=== PATIENT | female | born 1985 | race Asian ===

== ENCOUNTER → 2018-03-01 | Outpatient (CLI) | payer OTHER | LOC: FIMAGING 10:29 | PROVIDERS: ATTEND Obstetrics & Gynecology | DX: O24.419 Gestational diabetes mellitus in pregnancy, unspecified control (principal); O09.512 Supervision of elderly primigravida, second trimester; O34.12 Maternal care for benign tumor of corpus uteri, second trimester; O99.212 Obesity complicating pregnancy, second trimester; E66.9 Obesity, unspecified; Z68.35 Body mass index [BMI] 35.0-35.9, adult; Z3A.18 18 weeks gestation of pregnancy ==

== ENCOUNTER → 2018-03-31 | Outpatient (CLI) | payer OTHER | LOC: FIMAGING 15:06 | PROVIDERS: ATTEND Obstetrics & Gynecology | DX: O09.512 Supervision of elderly primigravida, second trimester (principal); Z3A.23 23 weeks gestation of pregnancy ==

== ENCOUNTER 2018-06-24 16:07 | Observation (INO) | payer OTHER ==
[2018-06-24 17:27] LABS: PLATELET COUNT 246 10^3/uL (150-400)
--- NOTE | 2018-06-24 20:18 | PDGENHP ---
History and Physical History and Physical: 33 G1 at 34w3d by LMP c/w 10wk US, sent over from the office for a preeclampsia evaluation. BP in office 140/80 and trace proteinuria. Was seen in Endocrine office yesterday and BP also 140/80 about - per pt. Has wrist BP cuff, has had some intermittent BPs 140s/90s. 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 No VB, no LOF. Preg c/b: +GDMA2 - was started on insulin at 24 weeks - poorly controlled. All BS last week when traveling to [place] last week > 200. +LGA - EFW today 98%ile, 7#12oz, S>D at 37w5d. US done today in office at [facility]. 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 Of [place] / [place] descent O: 37.0 88 BPs q 15 min over 2.5 hours range 64-82 / 114-133 NST 140 reactive, Cat 1 toco - no contractions gen- pleasant, NAD abd - gravid, soft, NT ext - trace edema (compression stockings in place) labs: P/C: 1.44 WBC 8.44 10^3/uL (3.80-9.50) 06/24/18 16:24 RBC 3.72 10^6/uL (4.18-5.33) L 06/24/18 16:24 Hgb 11.8 g/dL (12.6-16.3) L 06/24/18 16:24 Hct 35.3 % (38.0-47.0) L 06/24/18 16:24 MCV 94.9 fL (81.5-99.8) 06/24/18 16:24 MCH 31.7 pg (27.9-34.1) 06/24/18 16:24 MCHC 33.4 g/dL (32.4-36.7) 06/24/18 16:24 RDW 14.3 % (11.5-15.2) 06/24/18 16:24 Plt Count 246 10^3/uL (150-400) 06/24/18 16:24 MPV 10.5 fL (8.7-11.7) 06/24/18 16:24 Neut % (Auto) 73.7 % (39.3-74.2) 06/24/18 16:24 Lymph % (Auto) 17.2 % (15.0-45.0) 06/24/18 16:24 Bryan % (Auto) 7.3 % (4.5-13.0) 06/24/18 16:24 Eos % (Auto) 1.1 % (0.6-7.6) 06/24/18 16:24 Baso % (Auto) 0.2 % (0.3-1.7) L 06/24/18 16:24 Nucleat RBC Rel Count 0.0 % (0.0-0.2) 06/24/18 16:24 Absolute Neuts (auto) 6.22 10^3/uL (1.70-6.50) 06/24/18 16:24 Absolute Lymphs (auto) 1.45 10^3/uL (1.00-3.00) 06/24/18 16:24 Absolute Monos (auto) 0.62 10^3/uL (0.30-0.80) 06/24/18 16:24 Absolute Eos (auto) 0.09 10^3/uL (0.03-0.40) 06/24/18 16:24 Absolute Basos (auto) 0.02 10^3/uL (0.02-0.10) 06/24/18 16:24 Absolute Nucleated RBC 0.00 10^3/uL (0-0.01) 06/24/18 16:24 Immature Gran % 0.5 % (0.0-1.1) 06/24/18 16:24 Immature Gran # 0.04 10^3/uL (0.00-0.10) 06/24/18 16:24 BUN 14 mg/dL (7-23) 06/24/18 16:24 Creatinine 0.7 mg/dL (0.6-1.0) 06/24/18 16:24 Estimated GFR > 60 06/24/18 16:24 Uric Acid 6.7 mg/dL (2.5-6.8) 06/24/18 16:24 Total Bilirubin 0.2 mg/dL (0.1-1.4) 06/24/18 16:24 Conjugated Bilirubin 0.2 mg/dL (0.0-0.5) 06/24/18 16:24 Unconjugated Bilirubin 0.0 mg/dL (0.0-1.1) 06/24/18 16:24 AST 16 IU/L (14-46) 06/24/18 16:24 ALT 33 IU/L (9-52) 06/24/18 16:24 Lactate Dehydrogenase 396 IU/L (313-618) 06/24/18 16:24 Ur Random Creatinine 12.5 mg/dL 06/24/18 16:24 U Random Total Protein 18 mg/dL (0-11) H 06/24/18 16:24 A/P: 33 G1 at 34w3d with poorly controlled GDMA2, proteinuria, and concern for developing preeclampsia, with suspected LGA baby. Does not meet BP criteria for preeclampsia today. Will DC home with strict preeclampsia precautions, and is to follow up on Wednesday morning (in 2 days) for a repeat preeclampsia evaluation (labs, NST, BPs) , unless any symptoms sooner. Discussed considering betamethasone, with concern for developing preeclampsia, but that will interfere with blood sugar control too. If diagnosis of preeclampsia, would administer betamethasone and monitor blood sugars closely. Long discussion about the importance of controlling blood sugars, about concern of big baby and trauma and how uncontrolled blood sugars can contribute to this. >25 min spent with patient face to face, with > 50% in counseling and coordination of care. Patricia Gagnon MD, FACOG
== END 2018-06-24 19:20 | disposition home or self-care (01) ==
LOC: FLD 16:07
PROVIDERS: ADMIT Hospitalist; ATTEND Hospitalist
DX: Z03.79 Encounter for other suspected maternal and fetal conditions ruled out (principal); O24.414 Gestational diabetes mellitus in pregnancy, insulin controlled; O34.13 Maternal care for benign tumor of corpus uteri, third trimester; D25.9 Leiomyoma of uterus, unspecified; Z3A.34 34 weeks gestation of pregnancy
CPT/HCPCS: 59025; G0378

== ENCOUNTER 2018-06-26 09:15 | Observation (INO) | payer OTHER ==
[2018-06-26 10:28] LABS: PLATELET COUNT 220 10^3/uL (150-400)
--- NOTE | 2018-06-27 00:01 | SOAPPROG ---
SOAP Progress Note Assessment/Plan: Assessment:33 yo G1 at 34w5d by LMP c/W 10 wk US with no current evidence of preeclampsia (normotensive), though does have persistent proteinuria (P/c = 0.23 , much improved from 1.4 two days ago. GDMA2 - better control past 2 days since at home. Plan:DC home with preeclamptic precautions. To FU in office in 2 d with NST and physician visit. To have NST and fluid check on Wednesday (6d). Instructed to schedule this regmen continuously every week until delivery. Encourage tight blood sugar control - discussed diet and carb mgmt. > 20 min spent face to face with > 50% in counseling. Patricia Gagnon MD, FACOG (delayed entry - pt seen 1140 on 06/26/18) 06/27/18 00:02 Subjective: Pt feeling well today. Much better since being home and eating more cleanly the past 2 days. No SETHI, no vis change, no epigastric pain. No VB, no LOF. Objective: Laboratory Results 06/26/18 10:17 06/26/18 10:17 NST 140 reactive toco - rare contraction gen - pleasant, NAD CV - RRR chest - CTAB abd - soft, gravid, NT ext - less edema than 2 d ago, 1+ DTRs, no clonus, no calf tenderness - Time Spent With Patient Time Spent With Patient: greater than 20 min - Pending Discharge Pending Discharge Within 24 Hours: Yes Pending Discharge Within 48 Hours: Yes Pending Discharge Date: 06/26/18 Pending Discharge Time: 11:45 Physical Exam - Physical Exam General Appearance: WD/WN, alert, no apparent distress EENT: PERRL/EOMI, normal ENT inspection Neck: non-tender Respiratory: chest non-tender, lungs clear, normal breath sounds Cardiac/Chest: normal peripheral pulses, regular rate, rhythm Abdomen: other (gravid, NT) Pelvic Exam: deferred Rectal: deferred Skin: normal color, warm/dry Extremities: normal inspection, swelling (1+ - less than 2 d ago) Neuro/Psych: alert, normal mood/affect, oriented x 3 ICD10 Worksheet Patient Problems: Problems Problem Status Onset Proteinuria affecting in third trimester Acute - ICD10 Problem Qualifiers (1) Proteinuria affecting in third trimester
== END 2018-06-26 12:17 | disposition home or self-care (01) ==
LOC: FOBOP 09:15 → EDSTATUS 09:15 → FLD 09:38
PROVIDERS: ADMIT Hospitalist; ATTEND Hospitalist
DX: Z03.79 Encounter for other suspected maternal and fetal conditions ruled out (principal); O24.414 Gestational diabetes mellitus in pregnancy, insulin controlled; O34.13 Maternal care for benign tumor of corpus uteri, third trimester; D25.9 Leiomyoma of uterus, unspecified; Z3A.34 34 weeks gestation of pregnancy
CPT/HCPCS: 59025; G0378

== ENCOUNTER 2018-07-15 16:23 | Observation (INO) | payer OTHER ==
--- NOTE | 2018-07-15 19:57 | OBPROG ---
Labor Progress Note Assessment/Plan: Assessment: 33 y/o @ 37 3/7 weeks who was sent over from the office for NST since there was not a good tracing in the office secondary to BMI Plan: NST only - Reactive, Cat I tracing with baseline 140s, pos accels, no decels, and mod variability 07/15/18 19:45 - Contraction Pattern Assessment Current Contraction Pattern: Other (Specify) (none) - FHR Assessment Ye FHR (bpm): 140 FHR Pattern Variability: Moderate FHR Category: 1 Oxytocin Orders Assessment - Pre-Induction/Augmentation Assessment Gestational Age: 37 week(s) and 3 day(s) ICD10 Worksheet Patient Problems: Problems Problem Status Onset NST (non-stress test) reactive on surveillance Acute
== END 2018-07-15 18:25 | disposition home or self-care (01) ==
LOC: FLD 16:23
PROVIDERS: ADMIT Obstetrics & Gynecology; ATTEND Obstetrics & Gynecology
DX: Z03.79 Encounter for other suspected maternal and fetal conditions ruled out (principal); O09.513 Supervision of elderly primigravida, third trimester; Z3A.37 37 weeks gestation of pregnancy
CPT/HCPCS: 59025; G0378

== ENCOUNTER 2018-07-19 16:52 | Inpatient (IN) | payer OTHER ==
[2018-07-19 17:50] LABS: PLATELET COUNT 215 10^3/uL (150-400)
--- NOTE | 2018-07-19 21:43 | GHP ---
[f rep st] PREOP HISTORY AND PHYSICAL DATE OF ADMISSION: 07/19/2018 HISTORY UPON PRESENTATION: The patient is a 33-year-old, G1, P0, at 38 weeks' gestation with an kamron mated due date of 08/02, who presents from an office visit where the patient was found to have hypert ension of 140/86 after the patient had been on NST monitoring for surveillance. The patient wa s advised to present to Labor and Delivery for preeclampsia evaluation. The patient has now had yair ral visits at [facility] with documented blood pressures with systolic of 140. This now qu alifies the patient for a diagnosis of preeclampsia, and the patient has had elevated protein on P:C ratios x2 in the past. The patient is admitted to the hospital for evaluation and discussion about i nduction. The patient is advised that she does meet the criteria for preeclampsia. However, does eldridge ve an atypical presentation with labile blood pressures and lab evaluations that have been very reass uring. The patient has had elevation of her uric acid on previous lab evaluations, but otherwise nor mal CBC and liver function tests, and the creatinine has been good at 0.7. The patient's first evide nce of hypertension was on June 24, and previous to that time throughout the the patient has had very normal low blood pressures. The patient denies any history of hypertension previous to . The patient is advised now that she is 38 weeks' gestation, that there is more risk of c omplications, further worsening of the preeclampsia, and she is advised to proceed with induction for delivery. Repeat laboratory testing is performed today and uric acid is now at 8 with a P:C ratio t jada of 1.1. CBC continues to be normal, and liver functions are normal with a creatinine now of 0.9 . The patient has had multiple very reassuring blood pressures in the 100s to 120s over 60s to 85. However, after discussion about preeclampsia and my recommendations for induction, the patient began having elevated blood pressures in the 140s over 90s to 105. monitoring shows a category 1 tra cing with good variability and baseline in the 130s with great accelerations. No decelerations noted . CARE: The patient has been with [facility] since 10 weeks' gestation. The patie nt's initial blood pressure at 11 weeks was 126/86. The patient had an elevated 1-hour Glucola in e 1st trimester, which was done due to obesity. The patient failed the 3-hour GTT and was diagnosed with diabetes. The patient has been followed by [facility] and was initiated on insulin i n April. The patient has not had good control of blood sugars and has had to continually increase her insulin levels. Out of the first trimester, the patient's blood pressures have been 100s over 7 0s. The patient has had serial growth ultrasounds with the diabetes, and the last check revealed est imated weight of 98th percentile at 7 pounds 12 ounces on 06/24. Head measurements are greater than the 95th percentile, and the abdominal circumference is also greater than the 98th percentile. Also on ultrasounds the patient has been noted to have 2 uterine fibroids measuring 5 to 6 cm. One i s anterior midposition and 1 is posterior. PAST MEDICAL HISTORY: Abnormal Pap smears with positive HPV 10 years ago. The patient has had acid reflux during this . History of migraine headaches a couple times a year. History of depre ssion in her teens with similar symptoms through this . The patient had an [facility]i [facility], but felt she did not need another appointme nt more recently. History of obesity. PAST SURGICAL HISTORY: Negative. ALLERGIES: The patient has no known drug allergies. CURRENT MEDICATIONS: vitamins. Current insulin requirements are NPH at night and a sliding scale of Humalog before each meal. Last noted was 13 units of NPH at night. SOCIAL HISTORY: The patient is . The patient is a nonsmoker. No alcohol or drug use. 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 FAMILY HISTORY: Mom with hypertension. CURRENT LABORATORY: Reveals hemoglobin 12, hematocrit 36.8, platelets 215,000. BUN 21, creatinine 0 .9, uric acid 8. Liver functions normal. Lactate dehydrogenase 410. Random urine protein 15, rando m urine creatinine 14.1, with P:C ratio of 1.06. PHYSICAL EXAM: GENERAL: Reveals an obese Laotian female in no physical distress. The patient does g et emotionally anxious after discussing the need for induction. VITAL SIGNS: The patient's initial blood pressures are 100s over 70s to 120s over 80s, but after discussion about induction, 141/103, 14 5/105, but after the patient had resolved to go home, her blood pressures decreased to 130s over 81. heart tone monitoring reveals a category 1 tracing with great accelerations in the baseline 13 0s with good [id number] variability and no decelerations. No contractions noted. PELVIC: Exam is declined. EXTREMITIES: The patient has hand edema, but has no peripheral pedal edema. The patient has 1+ reflexes at her knees. ASSESSMENT: Intrauterine at 38 weeks' gestation, preeclampsia without severe features. Ge stational diabetes A2 with poorly controlled blood sugars through , and LGA infant on ultras ound with size discrepancy with elevated AC measurements. Moderate size uterine fibroids. Obesity. History of depression and [facility]. History of migraines. PLAN: The patient is counseled about induction due to the concern for worsening preeclampsia. The p atient states that she really has not prepared for that and was wanting to go to at least 39 to 40 we eks gestation before delivery. The patient also reports that she has quite a few things at work that she really needs to settle down before she takes an extended period of time off. The patient was ad vised that although those things seem important, the patient does have increased medical potential, s evere changes that might happen and endanger she and the baby. The patient feels that the lack of co nsistently elevated blood pressures establishes that she is not as sick as we are worried about and f eels that she can continue for at least several days. The patient is advised to touch base with our office with a plan about when we can set up induction. I explained the process of inductio n to her in the hope that she remains out of the severe category. The patient declines remaining in the hospital for induction and has left against medical advice. The patient signed the AMA form, un derstanding that worsening preeclampsia could lead to seizures, stroke, , kidney failure. The patient is encouraged to continue checking at the office for assessments, but again strong ly encouraging progressing to delivery. A total of 45 minutes was spent with the patient discussing her current medical status and the concer ns about the preeclampsia. Greater than 50% of the visit was discussing preeclampsia and potential w orsening, and the reasons for recommendations for delivery. /[id number]/MODL
--- NOTE | 2018-07-25 19:53 | GDS ---
[f rep st] DISCHARGE SUMMARY DISCHARGE SUMMARY: I am asked to put in the discharge order. This actually purposely was not put in on 07/19 because the patient left against medical advice, and I felt that, if I put in a discharge o rder, that would be ordering her discharge. I did not agree with her discharge on that day. If this is appropriate to have as a discharge order, please put that in, but, if someone can actually give m e feedback on whether that is appropriate when a patient leaves AMA. /[id number]/MODL
== END 2018-07-19 20:05 | disposition left against medical advice (07) | DRG 833 ==
LOC: FLD 16:52
PROVIDERS: ADMIT Obstetrics & Gynecology; ATTEND Obstetrics & Gynecology
DX: O14.03 Mild to moderate pre-eclampsia, third trimester (principal); O24.414 Gestational diabetes mellitus in pregnancy, insulin controlled; O99.213 Obesity complicating pregnancy, third trimester; O36.63X0 Maternal care for excessive fetal growth, third trimester, not applicable or unspecified; O34.13 Maternal care for benign tumor of corpus uteri, third trimester; O99.343 Other mental disorders complicating pregnancy, third trimester; F32.9 Major depressive disorder, single episode, unspecified; E66.9 Obesity, unspecified; Z3A.38 38 weeks gestation of pregnancy
CPT/HCPCS: 82947-QW; G0378

== ENCOUNTER 2018-07-25 06:00 | Inpatient (IN) | payer OTHER ==
[2018-07-25] MEDS ORDERED: LIDOCAINE 1% 300 MG/30 ML SDV ONE (07:17)
[2018-07-25] MEDS ORDERED: OLIVE OIL 118 ML BTL MISC ONE (07:17)
[2018-07-25] MEDS ORDERED: AMMONIA AROMATIC 1 EACH AMP IH ONE (07:18)
[2018-07-25] MEDS ORDERED: TERBUTALINE SULFATE 1 MG/ML VIAL ONE (07:18)
[2018-07-25] MEDS ORDERED: MISOPROSTOL 200 MCG TAB ONE (07:18)
[2018-07-25] MEDS ORDERED: OXYTOCIN 10 UNIT/ML VIAL ONE (07:18)
[2018-07-25] MEDS ORDERED: OXYTOCIN/RINGERS LACTATE 20 UNIT/1,000 ML BAG IV ONE (07:18)
[2018-07-25] MEDS ORDERED: OXYTOCIN/RINGERS LACTATE 500 ML IV SCH (07:23)
[2018-07-25] MEDS ORDERED: LR 500 ML IV PRN (07:23)
[2018-07-25] MEDS ORDERED: LIDOCAINE 1% 300 MG/30 ML SDV SC PRN (07:24)
[2018-07-25] MEDS ORDERED: OLIVE OIL 118 ML BTL MISC PRN (07:24)
[2018-07-25] MEDS ORDERED: OXYTOCIN/RINGERS LACTATE 1,000 ML IV PRN (07:24)
[2018-07-25] MEDS ORDERED: EPSOM SALT 454 GM TP PRN (07:24)
[2018-07-25] MEDS ORDERED: PENICILLIN G POTASSIUM 5,000,000 UNIT in D5W 150 ML IV ONE (07:24)
[2018-07-25] MEDS ORDERED: MISOPROSTOL 200 MCG TAB PR PRN (07:24)
[2018-07-25] MEDS ORDERED: IBUPROFEN 600 MG TAB PO PRN (07:24)
[2018-07-25] MEDS ORDERED: LR 1,000 ML IV PRN (07:24)
[2018-07-25 08:08] LABS: PLATELET COUNT 211 10^3/uL (150-400)
[2018-07-25] MEDS ORDERED: PENICILLIN G POTASSIUM 2,500,000 UNIT in D5W 150 ML IV SCH (11:25)
[2018-07-25] MEDS ORDERED: ceFAZolin 2 GM/DEXTROSE 100 ML IV ONE (11:38)
[2018-07-25] MEDS ORDERED: ACETAMINOPHEN 500 MG TAB ONE (13:29)
[2018-07-25] MEDS ORDERED: FAMOTIDINE 20 MG/NACL/50 ML BAG IV ONE (13:29)
[2018-07-25] MEDS ORDERED: CITRIC ACID/SODIUM CITRATE 30 ML UDCUP ONE (13:29)
[2018-07-25] MEDS ORDERED: METOCLOPRAMIDE 10 MG/2 ML VIAL ONE (13:29)
[2018-07-25] MEDS ORDERED: RANITIDINE 50 MG/2 ML VIAL IVP ONE (13:30)
[2018-07-25] MEDS ORDERED: CITRIC ACID/SODIUM CITRATE 30 ML UDCUP PO ONE (13:30)
[2018-07-25] MEDS ORDERED: ACETAMINOPHEN 500 MG TAB PO ONE (13:30)
[2018-07-25] MEDS ORDERED: METOCLOPRAMIDE 10 MG/2 ML VIAL IVP ONE (13:30)
[2018-07-25] MEDS ORDERED: FAMOTIDINE 20 MG/NACL 50 ML IV ONE (13:30)
[2018-07-25] MEDS ORDERED: TRANEXAMIC ACID 1,000 MG/10 ML VIAL ONE (13:37)
[2018-07-25] MEDS ORDERED: morphINE PF 5 MG/10 ML INJ ONE (13:45)
[2018-07-25] MEDS ORDERED: KETAMINE 500 MG/10 ML VIAL ONE (14:15)
--- NOTE | 2018-07-25 14:22 | GHP ---
[f rep st] PREOP HISTORY AND PHYSICAL DATE OF ADMISSION: 07/25/2018 HISTORY OF PRESENT ILLNESS: The patient is a 33-year-old, G1, P0, at 38 weeks and 6 days with an est imated due date of 08/02/2018, who presented to Labor and Delivery this morning for induction of labo r for preeclampsia without severe features. The patient has been strongly advised to proceed with ce sarean section due to recent ultrasound showing macrosomia and the patient's also complicat ed with gestational diabetes type A2 on p.m. NPH insulin. The patient had declined a scheduled C-sec tion and had presented for induction of labor. The patient wanted to give labor a trial knowing incr eased risk of shoulder dystocia and injury to baby with the delivery as well as increased risk of pos tpartum hemorrhage with macrosomia in addition to her history of fibroids. The patient was advised t here is increased chance of intolerance to labor as the macrosomia might present with the baby not tolerating contractions if it could not fit into the pelvic inlet. The patient at this time is n ow desiring to proceed with section. She had gotten up to 10 milliunits per minute of Pitoc in and having mild contractions every 3 to 5 minutes, but now after further discussions about risk an d discussions with the patient's , she decides to proceed with delivery. The patient has now been n.p.o. x2 hours, and we will proceed with . The patient had a diagnosis of pr eeclampsia on July 19, and at that time refused delivery until now. The patient's blood pressures have been stable and the highest blood pressure was in the 140s over 90 while she was standing, but other foreman has been 110s to 130s over 70s to 80s. The patient's admission labs are all stable and creatini ne 0.8 with normal liver functions. Platelets 211,000. The patient's blood sugars this morning have been 70s to 80s. The baby has had some difficulty in monitoring due to the obesity, but has shown c ategory 1 tracing for prolonged periods with good accelerations and no decelerations. Bag of water i s intact. CARE: The patient has been with [facility] [place] [facility] weeks [facility] 126/86. The patient had an elevated 1-hour Glucola in e first trimester and failed a 3-hour GTT, and therefore has had a diagnosis of diabetes since that t paulie. She has been followed with [facility] and was started on insulin in April. The p jake has had times of very poor blood sugar control, but has been in the normal ranges more recentl y. The patient had a time where she used a sliding scale and had regular insulin throughout the day; however, she states she has not needed that in the last 2 weeks. The patient has had serial ultraso unds due to the diabetes, which has shown greater than the 98th percentile overall, as well as the ab dominal circumference greater than the 98th percentile. [facility] the baby was noted to be an estimated weight of 4545 g with, again, the abdominal circumfer ence greater than the 98th percentile. Fluid level was normal. The patient also has 2 uterine fibro ids with 6 cm fibroid noted in the anterior mid position and a 5 cm posterior uterine fibroid. PAST MEDICAL HISTORY: Abnormal Pap smears with positive HPV. History of acid reflux during the preg tariq. History of migraines a couple of times a year. History of depression in her teens with simil ar symptoms through the earlier part of this . The patient had a [facility], and did not need further appointments during the . The patient also has obesity. PAST SURGICAL HISTORY: Negative. CURRENT OBSTETRIC LABS: Maternal blood type B positive with negative antibody screen. RPR nonreacti ve. Hepatitis B surface antigen negative. HIV negative. Rubella shows low immunity. Urinalysis an d culture negative. Pap smear and HPV negative. Gonorrhea and chlamydia negative. Verifi testing w as normal. MSAFP was negative. Gestational diabetes diagnosis was on January 22. GBS culture was positive. ALLERGIES: The patient has no known drug allergies. CURRENT MEDICATIONS: vitamins. NPH at night of 13 units; however, the patient reported she only used 12 last night. Sliding scale of Humalog a couple of weeks ago. SOCIAL HISTORY: The patient is . She is a nonsmoker and uses no alcohol or drug use. 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 FAMILY HISTORY: The patient's mother has hypertension. CURRENT LAB ON ADMISSION: The patient's white count is 6.9, hemoglobin of 12, hematocrit of 36, plat elets 211,000. Creatinine 0.8, uric acid 6.7. Liver function tests are normal. P to C ratio was el evated at 1.1 last week. Blood sugar has been 73 and 80. PHYSICAL EXAMINATION: GENERAL: Upon admission, the patient is an obese Laotian female in no physica l distress. The patient has been in a good mental frame of mind for the induction and has been open to the discussions of the risks for vaginal . Her has noted complications that his [facility] er told him was with his , and the scenario that sounds like shoulder dystocia with his large bi rth weight. VITAL SIGNS: Up to 140/90 with blood pressures more 120s to 130s over 70s and 80s. The patient has had preeclamptic range of blood pressures on prior admissions. LUNGS: Clear to auscult ation bilaterally. CARDIOVASCULAR: Regular rate and rhythm. heart tone monitoring has been d ifficult due to the obesity, but several episodes of good category 1 tracing with baseline in the 130 s to 140s with good accelerations and no decelerations. No contractions of any strong intensity, but mild ones occurring every 3 to 5 minutes. The patient has now been off Pitocin for 2 hours. PELVIC : Showed 3 cm dilated, about 90% effaced, at -3 station and the head was ballotable. EXTREMITIES: The patient has hand and face edema, but no peripheral pedal edema. She has 1 to 2+ reflexes at her knees. ASSESSMENT: Intrauterine at 38 weeks and 6 days, preeclampsia without severe features, for induction today, gestational diabetes A2 with poorly controlled blood sugars earlier in an d macrosomia with an estimated weight of 4545 g. Due to the macrosomia, the patient is strongl y counseled to reconsider induction of labor , and the patient now wants to proceed with del demi. Moderate-size uterine fibroids. Obesity. History of depression. History of migraines. PLAN: The patient is now counseled and consented to proceed with . We will use TXA at the time of incision to try to help proactively control estimated uterine atony. The patient is receivin g Ancef prior to incision. Patient will be on DVT prophylaxis. /[id number]/MODL
[2018-07-25] MEDS ORDERED: NALOXONE HCL 0.4 MG/ML INJ IVP PRN ×2 (14:37→15:21)
--- NOTE | 2018-07-25 14:37 | PREANESOB ---
Obstetric Pre-Anesthesia Info - General Info : 1 Para: 0 SUNNY: 08/02/18 Gestational Age: 38 week(s) and 6 day(s) Anesthesia Allergies/Adverse Reactions: Allergy/AdvReac Type Severity Reaction Status Date / Time No Known Allergies Allergy Unverified 08/03/14 21:08 Home Medications: Medication Instructions Recorded Ascorbic Acid [Vitamin C 250mg 500 mg PO DAILY 06/26/18 chewable] Docusate Sodium [Colace 100 MG (*)] 100 mg PO BID 06/26/18 Fluticasone Nasal [Flonase Nasal 1 sprays NASAL DAILY 06/26/18 [place] (RX)] Folic Acid [Folic Acid 1 MG (*)] 06/26/18 Insulin Lispro [Humalog Kwikpen PRN 06/26/18 U-100] Insulin NPH Hum/Reg Insulin Hm 12 units SQ DAILY AT 9PM 06/26/18 [Humulin 70/30 Kwikpen] Iron 06/26/18 Vit27&Calcium/Iron/FA 1 each PO DAILY 06/26/18 [ Rx 1 Tablet (RX)] Fiber Gummies 07/19/18 Lansoprazole [Prevacid] 1 tab PO 07/25/18 Visit Medications: Generic Name Dose Route Start Last Admin Trade Name Freq PRN Reason Stop Dose Admin Lactated Ringer's 500 mls @ 500 mls/hr 07/25/18 07:23 Lr IV PRN PRN Maternal Hypotension Oxytocin/Lactated Ringer's 500 mls @ 0 mls/hr 07/25/18 07:23 07/25/18 07:50 Pitocin 30 Units/Lr (Premix) IV 01/21/19 07:22 500 mls CONT KYLIE Administration Protocol Per Protocol Lactated Ringer's 1,000 mls @ 0 mls/hr 07/25/18 07:24 07/25/18 07:50 Lr IV 07/26/18 07:23 1,000 mls PRN PRN Administration SEE PROTOCOL CONDITIONS Protocol Per Protocol Oxytocin/Lactated Ringer's 1,000 mls @ 125 mls/hr 07/25/18 07:24 Pitocin 20 Units/Lr (Premix) IV PRN PRN Post bleeding Penicillin G Potassium 2,500, 155 mls @ 155 mls/hr 07/25/18 11:25 07/25/18 12 :25 000 unit/ Dextrose IV 08/24/18 11:24 155 mls Q4H KYLIE Administration Protocol Ibuprofen 600 mg 07/25/18 07:24 Motrin PO ONCE PRN post , pain Lidocaine HCl 300 mg 07/25/18 07:24 Lidocaine Hcl 1% SC 01/21/19 07:23 ONCE PRN episiotomy Magnesium Sulfate 454 gm 07/25/18 07:24 Epsom Salt TP 01/21/19 07:23 Q1H PRN perineal discomfort Misoprostol 800 - 1,000 mcg 07/25/18 07:24 Cytotec CA ONCE PRN Vaginal Atony/Bleeding Boaz Oil 118 ml 07/25/18 07:24 Sweet Oil MISC 01/21/19 07:23 ONCE PRN perineal massage Discontinued Medications Generic Name Dose Route Start Last Admin Trade Name Freq PRN Reason Stop Dose Admin Acetaminophen Confirm 07/25/18 13:29 Tylenol Administered 07/25/18 13:30 Dose 1,000 mg .ROUTE .STK-MED ONE Acetaminophen 1,000 mg 07/25/18 13:30 Tylenol PO 07/25/18 13:31 ONCE ONE Ammonia (Aromatic Spirit) Confirm 07/25/18 07:18 Ammonia Aromatic Administered 07/25/18 07:19 Dose 1 each IH .STK-MED ONE Citric Acid/Sodium Citrate Confirm 07/25/18 13:29 Bicitra Administered 07/25/18 13:30 Dose 30 ml .ROUTE .STK-MED ONE Citric Acid/Sodium Citrate 30 ml 07/25/18 13:30 Bicitra PO 07/25/18 13:31 ONCE ONE Famotidine/Sodium Chloride Confirm 07/25/18 13:29 Pepcid 20 Mg (Premix) Administered 07/25/18 13:30 Dose 20 mg IV .STK-MED ONE Penicillin G Potassium 5,000, 160 mls @ 160 mls/hr 07/25/18 07:24 07/25/18 07 :49 000 unit/ Dextrose IV 07/25/18 08:23 160 mls ONCE ONE Administration Protocol Cefazolin Sodium/Dextrose 100 mls @ 200 mls/hr 07/25/18 11:38 Ancef IV 07/25/18 12:07 ONCALL ONE Protocol Ketamine HCl Confirm 07/25/18 14:15 Ketamine Administered 07/25/18 14:16 Dose 500 mg .ROUTE .STK-MED ONE Lidocaine HCl Confirm 07/25/18 07:17 Lidocaine Hcl 1% Administered 07/25/18 07:18 Dose 300 mg .ROUTE .STK-MED ONE Metoclopramide HCl Confirm 07/25/18 13:29 Reglan Injection Administered 07/25/18 13:30 Dose 10 mg .ROUTE .STK-MED ONE Metoclopramide HCl 10 mg 07/25/18 13:30 Reglan Injection IVP 07/25/18 13:31 ONCE ONE Misoprostol Confirm 07/25/18 07:18 Cytotec Administered 07/25/18 07:19 Dose 1,000 mcg .ROUTE .STK-MED ONE Morphine Sulfate Confirm 07/25/18 13:45 Morphine Pf 5 Mg/10 Ml Administered 07/25/18 13:46 Dose 5 mg .ROUTE .STK-MED ONE Boaz Oil Confirm 07/25/18 07:17 Sweet Oil Administered 07/25/18 07:18 Dose 118 ml MISC .STK-MED ONE Oxytocin Confirm 07/25/18 07:18 Pitocin Administered 07/25/18 07:19 Dose 30 unit .ROUTE .STK-MED ONE Oxytocin/Lactated Ringer's Confirm 07/25/18 07:18 Pitocin 20 Units/Lr (Premix) Administered 07/25/18 07:19 Dose 20 unit IV .STK-MED ONE Ranitidine HCl 50 mg 07/25/18 13:30 Zantac IVP 07/25/18 13:31 ONCALL ONE Terbutaline Sulfate Confirm 07/25/18 07:18 Brethine Administered 07/25/18 07:19 Dose 1 mg .ROUTE .STK-MED ONE Tranexamic Acid Confirm 07/25/18 13:37 Cyklokapron Administered 07/25/18 13:38 Dose 1,000 mg .ROUTE .STK-MED ONE - Anesthesia History Response to Local Anesthetics: Normal Anesthesia & Operative History: No Prior Problems Family Anesthesia History: Negative - Social History Substance Use/Abuse: Denies - Vital Signs Height/Weight (Nursing): Height 162.56 cm Weight 103.4 kg - Focused Exam Neck exam: decreased ROM Mallampati Score: Class 2 Mouth exam: normal dental/mouth exam Pulmonary: no respiratory distress Cardiovascular: regular rate and rhythym Labs: 07/25/18 07:45 07/25/18 10:30 Patient ABO/Rh B POSITIVE 07/25/18 07:45 Uric Acid 6.7 mg/dL (2.5-6.8) 07/25/18 10:30 Total Bilirubin 0.2 mg/dL (0.1-1.4) 07/25/18 10:30 Conjugated Bilirubin 0.1 mg/dL (0.0-0.5) 07/25/18 10:30 Unconjugated Bilirubin 0.1 mg/dL (0.0-1.1) 07/25/18 10:30 AST 26 IU/L (14-46) 07/25/18 10:30 ALT 22 IU/L (9-52) 07/25/18 10:30 Lactate Dehydrogenase 448 IU/L (313-618) 07/25/18 10:30 - Plan Anesthetic Plan: spinal Consent Signed and on Chart: Yes Patient/Guardian Understands and Agrees to Plan: Yes Urgent/Emergent Case: Frederic bell completed preop but documented later for safe timely pt care
[2018-07-25] MEDS ORDERED: fentaNYL 100 MCG/2 ML INJ ONE (15:01)
[2018-07-25] MEDS: KETOROLAC 30 MG/1 ML SDV IVP SCH ×2 (15:20→21:27)
[2018-07-25] MEDS ORDERED: PHENYLEPHRINE HCL 100 MCG/ML SYR IVP PRN (15:21)
[2018-07-25] MEDS ORDERED: fentaNYL 100 MCG/2 ML INJ IVP PRN (15:21)
[2018-07-25] MEDS ORDERED: NS 500 ML IV PRN (15:21)
[2018-07-25] MEDS ORDERED: PROMETHAZINE HCL 25 MG/ML INJ IVP PRN (15:21)
[2018-07-25] MEDS ORDERED: oxyCODONE IR 5 MG TAB PO PRN (15:46)
[2018-07-25] MEDS ORDERED: LACTULOSE 20 GM/30 ML UDCUP PO PRN (15:46)
[2018-07-25] MEDS ORDERED: POLYETHYLENE GLYCOL 3350 17 GM PKT PO PRN (15:46)
[2018-07-25] MEDS ORDERED: BISACODYL 10 MG SUPP PR PRN (15:46)
[2018-07-25] MEDS ORDERED: MAGNESIUM HYDROXIDE 30 ML UDCUP PO PRN (15:46)
[2018-07-25] MEDS ORDERED: MEASLES,MUMPS&RUBELLA VACC/PF 0.5 ML VIAL SC ONE (15:52)
--- NOTE | 2018-07-25 15:55 | OBDEL ---
Info Type: Primary Presentation at Delivery: Vertex L&D Analgesia/Anesthesia Type: Spinal (with duramorph) GBS+: Yes (PCN x 2doses) Intrapartum Medications: Generic Name Dose Route Start Last Admin Trade Name Freq PRN Reason Stop Dose Admin Oxytocin/Lactated Ringer's 500 mls @ 0 mls/hr 07/25/18 07:23 07/25/18 07:50 Pitocin 30 Units/Lr (Premix) IV 01/21/19 07:22 500 mls CONT KYLIE Administration Protocol Per Protocol Lactated Ringer's 1,000 mls @ 0 mls/hr 07/25/18 07:24 07/25/18 07:50 Lr IV 07/26/18 07:23 1,000 mls PRN PRN Administration SEE PROTOCOL CONDITIONS Protocol Per Protocol Discontinued Medications Generic Name Dose Route Start Last Admin Trade Name Lakshmi PRN Reason Stop Dose Admin Acetaminophen 1,000 mg 07/25/18 13:30 07/25/18 13:37 Tylenol PO 07/25/18 13:31 1,000 mg ONCE ONE Administration Citric Acid/Sodium Citrate 30 ml 07/25/18 13:30 07/25/18 13:38 Bicitra PO 07/25/18 13:31 30 ml ONCE ONE Administration Penicillin G Potassium 5,000, 160 mls @ 160 mls/hr 07/25/18 07:24 07/25/18 07 :49 000 unit/ Dextrose IV 07/25/18 08:23 160 mls ONCE ONE Administration Protocol Penicillin G Potassium 2,500, 155 mls @ 155 mls/hr 07/25/18 11:25 07/25/18 12 :25 000 unit/ Dextrose IV 08/24/18 11:24 155 mls Q4H KYLIE Administration Protocol Cefazolin Sodium/Dextrose 100 mls @ 200 mls/hr 07/25/18 11:38 07/25/18 13:44 Ancef IV 07/25/18 12:07 100 mls ONCALL ONE Administration Protocol Metoclopramide HCl 10 mg 07/25/18 13:30 07/25/18 13:40 Reglan Injection IVP 07/25/18 13:31 10 mg ONCE ONE Administration - Care Provider Central Office Repairer/[employer]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: Sonia Damico Indications for Delivery: Preeclampsia Mild ( macrosomia - EFW 4545gm), Diabetes Gestational Poorly Controlled Operative Report - Delivery Pre-op Diagnoses: IUP at 38w6d, macrosomia, preeclampsia without severe features, GDM - A2, uterine fibroids Post-op Diagnoses: same, delivered History of Prior Section: No Number of Prior Sections: 0 Nulliparous Prior to Delivery: Yes Indications for Current Section: Other (Specify) ( macrosomia - EFW 4545 gm) Procedure: Unscheduled, Low Transverse Surgeon: Janice Stokes Pool Hand: Bisi Lopez Anesthesiologist: Sukumar Snow Complications: Other (Specify) (persistent bleeding from right hysterotomy - add'n sutures in figure of eight stitches, and surgicele applied for light cont oozing.) Findings: more adherent visceral peritoneum - more vasc plane to dev the bladder flap. clear fluid upon hysterotomy. no nuchal cord. vigorous baby upon delivery. 1 min delayed cord clamping. uterus with 6 cm ant fibroid and smaller post fibroid. persistent bld from right angle of incision under the ant fibroid. add'n stitches placed x4. double layer closure. bladder flap edge req'd cautery. surgicele placed. irrigation done. muscle reapprox with F8 stitch in midline. fascia closed with 2 stitches, each starting from angle but best visualization. brock's closed. good uterine tone - minimal bleed after surg and firm fundus. clear uop IV Fluid (ml): 1,400 EBL: 1200 [place] Data SUNNY: 08[birth year] Gestational Age: 38 week(s) and 6 day(s) Ye Delivery Date: 07/25/18 Delivery Time: 14:28 Sex of Infant: Male ([place]) Weight (gm): 3705 g (8#10oz) Score (1 Min): 8 Score (5 Min): 9 ICD10 Worksheet Patient Problems: Problems Problem Status Onset S/P primary low transverse Acute Macrosomia of fetus affecting management of mother Acute Gestational diabetes mellitus (GDM) Acute Pre-eclampsia during in third trimester, antepartum Acute
[2018-07-25] MEDS: IBUPROFEN 600 MG TAB PO SCH ×2 (16:19→22:32)
--- NOTE | 2018-07-25 18:51 | OBPP ---
Progress Note Assessment/Plan: Assessment: POD 1/2 s/p primary c/s for macrosomia, preeclampsia and GDM A2 doing well. Plan: routine care. will watch for b/p elevation. 07/25/18 18:48 Subjective/ Course: 07/25/18 18:49 Pt doing well. reports no pain while sitting in bed. Has had no nausea - ning ice chips and sips of water. Has worked with the baby trying to latch. baby seems very sleepy. No headache. Disc f/u with Dr Razo for bs evaluation in couple months but not necessary to monitor bs now. Objective: 07/25/18 07:45 07/25/18 10:30 Patient ABO/Rh B POSITIVE 07/25/18 07:45 Uric Acid 6.7 mg/dL (2.5-6.8) 07/25/18 10:30 Total Bilirubin 0.2 mg/dL (0.1-1.4) 07/25/18 10:30 Conjugated Bilirubin 0.1 mg/dL (0.0-0.5) 07/25/18 10:30 Unconjugated Bilirubin 0.1 mg/dL (0.0-1.1) 07/25/18 10:30 AST 26 IU/L (14-46) 07/25/18 10:30 ALT 22 IU/L (9-52) 07/25/18 10:30 Lactate Dehydrogenase 448 IU/L (313-618) 07/25/18 10:30 Temp Pulse Resp BP Pulse Ox 36.6 C 98 17 110/62 96 07/25/18 18:41 07/25/18 18:41 07/25/18 18:41 07/25/18 18:41 07/25/18 18:41 Uterine Position/Fundal Height: At Umbilicus Uterine Tone: Firm Physical Exam - Physical Exam Abdomen: non-tender (approp post op tenderness), soft, dressing (CDI - old stain on left angle) Extremities: non-tender, pedal edema (minimal) Skin: normal color, warm/dry Neuro/Psych: alert, normal mood/affect
[2018-07-25] MEDS: SENNOSIDES/DOCUSATE SODIUM TAB PO SCH (21:27)
[2018-07-25] MEDS: ACETAMINOPHEN 325 MG TAB PO SCH (21:28)
[2018-07-26] MEDS: KETOROLAC 30 MG/1 ML SDV IVP SCH ×2 (04:02→10:04)
[2018-07-26] MEDS: ACETAMINOPHEN 325 MG TAB PO SCH ×5 (04:02→22:19)
[2018-07-26] MEDS: IBUPROFEN 600 MG TAB PO SCH ×4 (04:33→22:18)
[2018-07-26] MEDS ORDERED: ENOXAPARIN 40 MG/0.4 ML SYR SC SCH (09:00)
--- NOTE | 2018-07-26 10:05 | OBPP ---
Progress Note Assessment/Plan: Assessment: 33 G1Pnow 1, POD#1 s/p primary LTCS in setting of preeclampsia with severe features, Gestational /pregestational diabetes, maternal obesity. BPs stable. One random gluc yesterday afternoon was normal - 100. Needs 2 hr GTT in 6-8 weeks. Received one dose of Lovenox today, as has not ambulated yet. Urinary catheter out - will need to be up to ambulate. Patricia Gagnon MD, FACOG 07/26/18 09:55 Subjective/ Course: 07/25/18 18:49 Pt doing well. reports no pain while sitting in bed. Has had no nausea - ning ice chips and sips of water. Has worked with the baby trying to latch. baby seems very sleepy. No headache. Disc f/u with Dr Razo for bs evaluation in couple months but not necessary to monitor bs now. 07/26/18 11:54 Pt doing well. Has been doing well. Has not been out of bed yet. Urinary catheter just removed. Ning reg diet without nausea today. Working on . NO SETHI, no vis changes, no epigastric pain. Mod lochia. Pain well controlled so far. Objective: 07/26/18 04:05 07/25/18 10:30 Patient ABO/Rh B POSITIVE 07/25/18 07:45 Uric Acid 6.7 mg/dL (2.5-6.8) 07/25/18 10:30 Total Bilirubin 0.2 mg/dL (0.1-1.4) 07/25/18 10:30 Conjugated Bilirubin 0.1 mg/dL (0.0-0.5) 07/25/18 10:30 Unconjugated Bilirubin 0.1 mg/dL (0.0-1.1) 07/25/18 10:30 AST 26 IU/L (14-46) 07/25/18 10:30 ALT 22 IU/L (9-52) 07/25/18 10:30 Lactate Dehydrogenase 448 IU/L (313-618) 07/25/18 10:30 Temp Pulse Resp BP Pulse Ox 37.1 C 104 H 18 106/65 94 07/26/18 04:18 07/26/18 04:18 07/26/18 07:15 07/26/18 04:18 07/26/18 07:15 Intake and Output 07/25/18 07/26/18 07/26/18 17:59 05:59 17:59 Intake Total 2670 1700 250 Output Total 450 1900 700 Balance 2220 -200 -450 Weight 103.4 kg Intake: Oral (ml) 700 600 250 IV Intake (ml) 1100 IV Infused (ml) 1970 Famotidine 20 mg/NaCl 50 50 ml @ 200 mls/hr IV ONCE ONE Rx#:[id number] Lr 1,000 ml @ Per 1500 Protocol IV PRN PRN Rx#: [id number] Oxytocin/Ringers Lactate 20 500 ml @ Per Protocol IV CONT KYLIE Rx#:[id number] Penicillin G Potassium 2, 150 500,000 unit In D5w 150 ml @ 155 mls/hr IV Q4H KYLIE Rx#:[id number] Penicillin G Potassium 5, 150 000,000 unit In D5w 150 ml @ 160 mls/hr IV ONCE ONE Rx#:[id number] ceFAZolin 2 GM/DEXTROSE 100 100 ml @ 200 mls/hr IV ONCALL ONE Rx#:[id number] Output: Urine (ml) 450 700 700 Catheter 450 700 700 Estimated Blood Loss (ml) 1200 Other: Output Comment Toilet cath removed no pee yet had 700ml urine out in 6 hours this morning. gen - pleasant, NAD CV - RRR chest - CTAB abd - soft, + BS dressing - C/D/I ext - SCDs in place, no calf tenderness, BLE with trace edema Uterine Position/Fundal Height: Umbilicus -2 Uterine Tone: Firm
[2018-07-26] MEDS: FERRO-SEQUELS 65 MG TAB.ER PO SCH ×2 (14:19→22:18)
[2018-07-26] MEDS: SENNOSIDES/DOCUSATE SODIUM TAB PO SCH ×2 (14:19→22:18)
--- NOTE | 2018-07-26 17:54 | POSTANESTH ---
Post Anesthetic Evaluation Cardiovascular Status: Normal, Stable, Similar to Pre-Op Cond Respiratory Status: Normal, Stable, Similar to Pre-op Cond. Level of Consciousness/Mental Status: Can Participate in Eval, Alert and Oriented Pain Control: Adequate, Prn Tx Ordered Nausea/Vomiting Control: Adequate, Prn Tx Ordered Complications Possibly Related to Anesthesia: None Noted Notes: Pt seen and examined. Back site c/d/i, no e/e/e. Denies SETHI/N/V/pruritis. [place] that her spinal gave excellent pain control for incision, but was surprised by how uncomfortable the pushing required to deliver the baby was. Able to ambulate. Block has resolved completely, no apparent adverse effects from the SAB/ITM.
[2018-07-27] MEDS: ACETAMINOPHEN 325 MG TAB PO SCH ×4 (04:39→22:36)
[2018-07-27] MEDS: IBUPROFEN 600 MG TAB PO SCH ×4 (04:39→22:35)
--- NOTE | 2018-07-27 10:14 | OBPP ---
Progress Note Assessment/Plan: Assessment: 33 y/o POD #2 s/p LTCS secondary to macrosomia Plan: support and bowel protocol today. Encourage ambulation today. Routine POC. 07/27/18 10:14 Subjective/ Course: 07/25/18 18:49 Pt doing well. reports no pain while sitting in bed. Has had no nausea - ning ice chips and sips of water. Has worked with the baby trying to latch. baby seems very sleepy. No headache. Disc f/u with Dr Razo for bs evaluation in couple months but not necessary to monitor bs now. 07/26/18 11:54 Pt doing well. Has been doing well. Has not been out of bed yet. Urinary catheter just removed. Ning reg diet without nausea today. Working on . NO SETHI, no vis changes, no epigastric pain. Mod lochia. Pain well controlled so far. 07/27/18 10:11 Pt is doing well today. Her pain control is better today with Ibuprofen and Tylenol. She is ambulating, voiding and has min lochia. She is struggling with breast feeding with a poor latch, and she is supplementing with an SNS and baby is happier. She is passing flatus but no BM yet. Objective: 07/26/18 04:05 07/25/18 10:30 Patient ABO/Rh B POSITIVE 07/25/18 07:45 Uric Acid 6.7 mg/dL (2.5-6.8) 07/25/18 10:30 Total Bilirubin 0.2 mg/dL (0.1-1.4) 07/25/18 10:30 Conjugated Bilirubin 0.1 mg/dL (0.0-0.5) 07/25/18 10:30 Unconjugated Bilirubin 0.1 mg/dL (0.0-1.1) 07/25/18 10:30 AST 26 IU/L (14-46) 07/25/18 10:30 ALT 22 IU/L (9-52) 07/25/18 10:30 Lactate Dehydrogenase 448 IU/L (313-618) 07/25/18 10:30 Temp Pulse Resp BP Pulse Ox 36.8 C 97 16 119/81 H 96 07/27/18 09:10 07/27/18 09:10 07/27/18 09:10 07/27/18 09:10 07/27/18 09:10 Uterine Position/Fundal Height: Umbilicus -2 Uterine Tone: Firm Physical Exam - Physical Exam General Appearance: WD/WN, alert, no apparent distress Neck: non-tender, full range of motion, supple Respiratory: chest non-tender, lungs clear, normal breath sounds Cardiac/Chest: regular rate, rhythm Abdomen: normal bowel sounds, incision (c/d/i) Extremities: swelling (1+), Deon's sign (neg)
[2018-07-27] MEDS: SENNOSIDES/DOCUSATE SODIUM TAB PO SCH ×2 (10:47→22:35)
[2018-07-27] MEDS: FERRO-SEQUELS 65 MG TAB.ER PO SCH ×2 (10:47→22:36)
[2018-07-28] MEDS: ACETAMINOPHEN 325 MG TAB PO SCH ×5 (01:18→23:04)
[2018-07-28] MEDS: IBUPROFEN 600 MG TAB PO SCH ×4 (04:49→23:04)
--- NOTE | 2018-07-28 09:05 | OBPP ---
Progress Note Assessment/Plan: Assessment: 1) 33 y/o G1 now P1 IOL s/p PLTCS secondary to macrosomia POD #3 - pt is stable 2) Anemia - pt is asymptomatic Plan: Continue routine pot-op care Pt is supplementing with an SNS and pumping, but is still concerned about baby boy's 10% weight loss and wants to stay another night Continue support Stay well hydrated! Plan for d/c home in am /07/28/18 09:06 Subjective/ Course: 07/25/18 18:49 Pt doing well. reports no pain while sitting in bed. Has had no nausea - ning ice chips and sips of water. Has worked with the baby trying to latch. baby seems very sleepy. No headache. Disc f/u with Dr Razo for bs evaluation in couple months but not necessary to monitor bs now. 07/26/18 11:54 Pt doing well. Has been doing well. Has not been out of bed yet. Urinary catheter just removed. Ning reg diet without nausea today. Working on . NO SETHI, no vis changes, no epigastric pain. Mod lochia. Pain well controlled so far. 07/27/18 10:11 Pt is doing well today. Her pain control is better today with Ibuprofen and Tylenol. She is ambulating, voiding and has min lochia. She is struggling with breast feeding with a poor latch, and she is supplementing with an SNS and baby is happier. She is passing flatus but no BM yet. 07/28/18 09:08 Pt seen and examined. Doing well, no complaints. Pain is well controlled at this time. She is sitting in rocking chair and pumping. She is OOB, ning regular diet, voiding without difficulty and passing flatus. No BM yet. Denies any f/c/n /v/CP or SOB. No HAs, visual changes or RYQ pain noted. She wants to stay another night and continue to work with BF and latch, concerns with baby boy and 10% weight loss. Objective: 07/26/18 04:05 07/25/18 10:30 Patient ABO/Rh B POSITIVE 07/25/18 07:45 Uric Acid 6.7 mg/dL (2.5-6.8) 07/25/18 10:30 Total Bilirubin 0.2 mg/dL (0.1-1.4) 07/25/18 10:30 Conjugated Bilirubin 0.1 mg/dL (0.0-0.5) 07/25/18 10:30 Unconjugated Bilirubin 0.1 mg/dL (0.0-1.1) 07/25/18 10:30 AST 26 IU/L (14-46) 07/25/18 10:30 ALT 22 IU/L (9-52) 07/25/18 10:30 Lactate Dehydrogenase 448 IU/L (313-618) 07/25/18 10:30 Temp Pulse Resp BP Pulse Ox 36.7 C 95 18 110/70 95 07/28/18 04:45 07/28/18 04:45 07/28/18 04:45 07/28/18 04:45 07/28/18 04:45 Uterine Position/Fundal Height: Umbilicus -2 Uterine Tone: Firm Physical Exam - Physical Exam General Appearance: WD/WN, alert, no apparent distress Respiratory: lungs clear, normal breath sounds Cardiac/Chest: regular rate, rhythm Abdomen: normal bowel sounds, non-tender, soft, flatus (+), incision (C/D/I with steri strips in place) Extremities: non-tender, normal inspection, swelling Skin: normal color, warm/dry Neuro/Psych: alert, normal mood/affect, oriented x 3
[2018-07-28] MEDS: SENNOSIDES/DOCUSATE SODIUM TAB PO SCH ×2 (10:26→23:04)
[2018-07-28] MEDS: FERRO-SEQUELS 65 MG TAB.ER PO SCH ×2 (10:26→23:04)
[2018-07-28] MEDS ORDERED: MEASLES,MUMPS&RUBELLA VACC/PF 0.5 ML VIAL SC ONE (10:57)
[2018-07-29] MEDS: IBUPROFEN 600 MG TAB PO SCH ×2 (04:58→10:56)
[2018-07-29] MEDS: ACETAMINOPHEN 325 MG TAB PO SCH ×2 (04:58→10:56)
--- NOTE | 2018-07-29 09:20 | OBPP ---
Progress Note Assessment/Plan: Assessment: pod#4 s/p PLTCS mild preeclampsia - blood pressures stable post blood pressure check in 1 week breast feeding and supplementing rh+/R low immune - MMR ordered anemia - iron supplementation Plan: 07/29/18 09:19 07/29/18 09:20 Subjective/ Course: 07/25/18 18:49 Pt doing well. reports no pain while sitting in bed. Has had no nausea - ning ice chips and sips of water. Has worked with the baby trying to latch. baby seems very sleepy. No headache. Disc f/u with Dr Razo for bs evaluation in couple months but not necessary to monitor bs now. 07/26/18 11:54 Pt doing well. Has been doing well. Has not been out of bed yet. Urinary catheter just removed. Ning reg diet without nausea today. Working on . NO SETHI, no vis changes, no epigastric pain. Mod lochia. Pain well controlled so far. 07/27/18 10:11 Pt is doing well today. Her pain control is better today with Ibuprofen and Tylenol. She is ambulating, voiding and has min lochia. She is struggling with breast feeding with a poor latch, and she is supplementing with an SNS and baby is happier. She is passing flatus but no BM yet. 07/28/18 09:08 Pt seen and examined. Doing well, no complaints. Pain is well controlled at this time. She is sitting in rocking chair and pumping. She is OOB, ning regular diet, voiding without difficulty and passing flatus. No BM yet. Denies any f/c/n /v/CP or SOB. No HAs, visual changes or RYQ pain noted. She wants to stay another night and continue to work with BF and latch, concerns with baby boy and 10% weight loss. 07/29/18 09:17 patient is doing well. pain is well controlled. normal lochia. denies headache and changes in vision. ambulating. passing gas. denies headache and changes in vision. working on breast feeding. supplementing and using sns system. voiding without difficulty. ready to go home. Objective: 07/26/18 04:05 07/25/18 10:30 Patient ABO/Rh B POSITIVE 07/25/18 07:45 Uric Acid 6.7 mg/dL (2.5-6.8) 07/25/18 10:30 Total Bilirubin 0.2 mg/dL (0.1-1.4) 07/25/18 10:30 Conjugated Bilirubin 0.1 mg/dL (0.0-0.5) 07/25/18 10:30 Unconjugated Bilirubin 0.1 mg/dL (0.0-1.1) 07/25/18 10:30 AST 26 IU/L (14-46) 07/25/18 10:30 ALT 22 IU/L (9-52) 07/25/18 10:30 Lactate Dehydrogenase 448 IU/L (313-618) 07/25/18 10:30 Temp Pulse Resp BP Pulse Ox 36.9 C 105 H 18 124/85 H 95 07/28/18 20:09 07/28/18 20:09 07/28/18 20:09 07/28/18 20:09 07/28/18 20:09 Physical Exam - Physical Exam Neck: non-tender, full range of motion, supple Respiratory: chest non-tender, lungs clear, normal breath sounds Cardiac/Chest: normal peripheral pulses, regular rate, rhythm Abdomen: normal bowel sounds, non-tender, other (fundus firm and non tender) Extremities: normal range of motion, non-tender, normal inspection, normal capillary refill Skin: normal color, warm/dry, other (incision clean dry and intact) Neuro/Psych: no motor/sensory deficits, alert, normal mood/affect, oriented x 3
--- NOTE | 2018-07-29 09:24 | OBGCSDC ---
General Delivery Information - General Info : 1 Para: 1 Abortions: 0 Type: Primary L&D Analgesia/Anesthesia Type: IV Narcotics, Spinal Admission Date: 07/25/18 Labs: Patient ABO/Rh B POSITIVE 07/25/18 07:45 Hct 28.8 % (38.0-47.0) L 07/26/18 04:05 Temp Pulse Resp BP Pulse Ox 07/28/18 20:09 36.9 C 105 H 18 124/85 H 95 - Hospital Course : 07/25/18 18:49 Pt doing well. reports no pain while sitting in bed. Has had no nausea - ranjan ice chips and sips of water. Has worked with the baby trying to latch. baby seems very sleepy. No headache. Disc f/u with Dr Razo for bs evaluation in couple months but not necessary to monitor bs now. 07/26/18 11:54 Pt doing well. Has been doing well. Has not been out of bed yet. Urinary catheter just removed. Ranjan reg diet without nausea today. Working on . NO SETHI, no vis changes, no epigastric pain. Mod lochia. Pain well controlled so far. 07/27/18 10:11 Pt is doing well today. Her pain control is better today with Ibuprofen and Tylenol. She is ambulating, voiding and has min lochia. She is struggling with breast feeding with a poor latch, and she is supplementing with an SNS and baby is happier. She is passing flatus but no BM yet. 07/28/18 09:08 Pt seen and examined. Doing well, no complaints. Pain is well controlled at this time. She is sitting in rocking chair and pumping. She is OOB, ranjan regular diet, voiding without difficulty and passing flatus. No BM yet. Denies any f/c/n /v/CP or SOB. No HAs, visual changes or RYQ pain noted. She wants to stay another night and continue to work with BF and latch, concerns with baby boy and 10% weight loss. 07/29/18 09:17 patient is doing well. pain is well controlled. normal lochia. denies headache and changes in vision. ambulating. passing gas. denies headache and changes in vision. working on breast feeding. supplementing and using sns system. voiding without difficulty. ready to go home. - Delivery Providers Surgeon: Janice Stokes Pipefitter Welder: Bisi Lopez Anesthesiologist: Sukumar Snow - Delivery Number of Prior Sections: 0 Indications for Current Section: Other (Specify) ( macrosomia - EFW 4545 gm) Surgical Procedures: Unscheduled, Low Transverse Intra-op Complications: Other (Specify) (persistent bleeding from right hysterotomy - add'n sutures in figure of eight stitches, and surgicele applied for light cont oozing.) EBL: [address] [place] Data USNNY: 08/02/18 Gestational Age: 39 week(s) and 3 day(s) Ye Delivery Date: 07/25/18 Delivery Time: 14:28 [place] Weight (gm): 3705 g Discharge Information - Discharge Information Prescriptions: oxyCODONE IR [Oxycodone Ir (*)] 5 - 10 mg PO Q4HRS PRN #7 tab PRN Reason: Pain, Severe Able To Take Po Ibuprofen [Motrin (*)] 600 mg PO ONCE PRN #30 tab PRN Reason: post , pain Condition: Good Instruction/Follow Up: One Week (blood pressure check), Four Weeks (post wellness [facility] mood check in our office), Six Weeks (post visit)
[2018-07-29 09:26] VITALS: BP 126/89
[2018-07-29] MEDS: SENNOSIDES/DOCUSATE SODIUM TAB PO SCH (10:56)
[2018-07-29] MEDS: FERRO-SEQUELS 65 MG TAB.ER PO SCH (10:56)
[2018-07-29] MEDS: MEASLES,MUMPS&RUBELLA VACC/PF 0.5 ML VIAL SC ONE ×2 (11:00→14:01)
[2018-07-29] MEDS ORDERED: MEASLES,MUMPS&RUBELLA VACC/PF 0.5 ML VIAL SC ONE (15:43)
== END 2018-07-29 13:50 | disposition home or self-care (01) | DRG 788 ==
LOC: FLD 06:16 → FOB 18:07
PROVIDERS: ADMIT Obstetrics & Gynecology; ATTEND Obstetrics & Gynecology
PROC: 10D00Z1 Extraction of Products of Conception, Low, Open Approach (ICD-10-PCS; principal; 2018-07-25)
DX: O14.14 Severe pre-eclampsia complicating childbirth (principal); Z37.0 Single live birth; Z3A.38 38 weeks gestation of pregnancy; O24.419 Gestational diabetes mellitus in pregnancy, unspecified control; O36.63X0 Maternal care for excessive fetal growth, third trimester, not applicable or unspecified; O34.13 Maternal care for benign tumor of corpus uteri, third trimester; O99.214 Obesity complicating childbirth; E66.9 Obesity, unspecified; O99.03 Anemia complicating the puerperium; O99.824 Streptococcus B carrier state complicating childbirth
CPT/HCPCS: 82947-QW; J0690; J1650; J1885; J2274; J2540; J2590; J2765; J2780; J3010; J3105

== ENCOUNTER → 2018-08-11 | Outpatient (CLI) | payer OTHER | LOC: FLACT 12:31 ==

== ENCOUNTER → 2018-09-08 | Outpatient (CLI) | payer OTHER | LOC: FLACT 14:49 ==